=== PATIENT | male | born 2000 | race Caucasian/White ===

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

== ENCOUNTER 2023-08-21 11:01 | Emergency (ER) | payer SELFPAY ==
[2023-08-21 11:45] VITALS: RESP 18
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
[2023-08-21] MEDS: KETOROLAC 15 MG/ML 1 ML VIAL IM STA (13:52)
[2023-08-21] MEDS: HYDROmorphone 0.5 MG/0.5 ML SYRINGE IM STA (13:53)
[2023-08-21 14:58] VITALS: BP 138/81; PULSE 72; TEMP 98.7
== END 2023-08-21 14:52 | disposition home or self-care (01) ==
LOC: EC 11:01
DX: S00.83XA Contusion of other part of head, initial encounter (principal); Y04.0XXA Assault by unarmed brawl or fight, initial encounter
CPT/HCPCS: 72125; 70486; 70450; 99284; 96372 ×2; J1885; J1170

== ENCOUNTER 2024-06-14 21:05 | Emergency (ER) | payer SELFPAY ==
--- NOTE | 2024-06-14 21:37 | ED ---
SOB HPI - General Chief Complaint: Shortness of Breath Stated Complaint: shortness of breath Time Seen by Provider: 06/14/24 21:21 Source: patient Mode of arrival: ambulatory Limitations: no limitations - History of Present Illness Initial Comments: Patient is a 23-year-old man here to have evaluation for exacerbation of asthma. He states that symptoms started flaring up approximately 2-1/2 hours ago. States that he does not have any of his medications. He has not been seeing a physician since Dr. Jade's clinic closed. Is having wheezing, dyspnea, cough with occasional yellow sputum. Has not noted fever, chest pain, change in urination or bowel movements. No leg pain or swelling. MD Complaint: shortness of breath, cough, "asthma attack" Onset/Timin -: hour(s) Severity scale (1-10): 0 Consistency: constant Improves With: nothing Worsens With: nothing Associated Symptoms: cough, sputum production Treatments Prior to Arrival: none - Related Data Home Oxygen Therapy: No Home Medications Medication Instructions Recorded Confirmed Albuterol Inhaler [Ventolin Hfa 2 puff INHALATION DIRECTED PRN 05/17/14 07/18/14 Inhaler] Previous Rx's Medication Instructions Recorded Albuterol Inhaler [Ventolin Hfa 2 puff INHALATION Q4HR PRN #8 gm 06/14/24 Inhaler] Allergies Allergy/AdvReac Type Severity Reaction Status Date / Time No Known Allergies Allergy Verified 08/21/23 11:10 Review of Systems ROS Statement: Those systems with pertinent positive or pertinent negative responses have been documented in the HPI. ROS Other: All systems not noted in ROS Statement are negative. Constitutional: Reports: fever, chills Respiratory: Reports: cough, dyspnea, wheezes. Denies: hemoptysis Cardiovascular: Denies: chest pain, palpitations, orthopnea, edema, syncope Gastrointestinal: Denies: abdominal pain, nausea, vomiting, diarrhea Genitourinary: Denies: dysuria, hematuria Musculoskeletal: Denies: back pain Skin: Denies: rash Neurological: Denies: headache, weakness Past Medical History Past Medical History: Asthma History of Any Multi-Drug Resistant Organisms: MRSA Date of last positivie culture/infection: may 2013 MDRO Source:: r arm Past Surgical History: No Surgical Hx Reported Past Psychological History: No Psychological Hx Reported Smoking Status: Current every day smoker Past Alcohol Use History: Occasional Past Drug Use History: None Reported General Exam Limitations: no limitations General appearance: alert, in no apparent distress Head exam: Present: atraumatic, normocephalic Eye exam: Present: normal appearance. Absent: scleral icterus, conjunctival injection Neck exam: Present: normal inspection Respiratory exam: Present: wheezes. Absent: rales, rhonchi, stridor, accessory muscle use, decreased breath sounds, prolonged expiratory Cardiovascular Exam: Present: regular rate, normal rhythm, normal heart sounds. Absent: systolic murmur, diastolic murmur, rubs, gallop GI/Abdominal exam: Present: soft. Absent: distended, tenderness, guarding, rebound, rigid, mass Extremities exam: Present: normal inspection, normal capillary refill. Absent: pedal edema, calf tenderness Neurological exam: Present: alert Skin exam: Present: warm, dry, intact, normal color. Absent: rash Course Vital Signs 06/14/24 06/14/24 06/14/24 21:09 21:28 21:32 Temperature 99.7 F H Pulse Rate 71 80 Respiratory 26 H 24 30 H Rate Blood Pressure 132/61 O2 Sat by Pulse 83 L 100 Oximetry 06/14/24 06/14/24 06/14/24 21:47 21:53 22:16 Temperature Pulse Rate 75 89 Respiratory Rate Blood Pressure O2 Sat by Pulse 99 Oximetry 06/14/24 06/14/24 22:34 23:26 Temperature 98.2 F Pulse Rate 88 88 Respiratory 20 18 Rate Blood Pressure 128/72 O2 Sat by Pulse 100 98 Oximetry Medical Decision Making - Medical Decision Making The patient had chest x-ray that I interpreted as negative for acute infiltrate, pneumothorax, congestive heart failure. Was pt. sent in by a medical professional or institution (, PA, TECHNICAL DEVELOPER, urgent care, hospital, or [facility]...) When possible be specific @ -[No] Did you speak to anyone other than the patient for history (EMS, parent, family, police, friend...)? What history was obtained from this source @ -[No] Did you review nursing and triage notes (agree or disagree)? Why? @ -[I reviewed and agree with nursing and triage notes] Were old charts reviewed (outside hosp., previous admission, EMS record, old EKG, old radiological studies, urgent care reports/EKG's, [facility] records)? Report findings @ -[No old charts were reviewed] Differential Diagnosis (chest pain, altered mental status, abdominal pain women, abdominal pain men, vaginal bleeding, weakness, fever, dyspnea, syncope, headache, dizziness, GI bleed, back pain, seizure, CVA, palpatations, mental health, musculoskeletal)? @ -[Differential Dyspnea: Coronary syndrome, arrhythmia, tamponade, asthma, COPD, pulmonary embolism, pneumonia, pneumothorax, pulmonary effusion, anaphylaxis, diabetic ketoacidosis, flailed chest, pulmonary contusion, diaphragmatic rupture, anemia, ne uromuscular, this is not meant to be an all-inclusive list. EKG interpreted by me (3pts min.). @ -[As above] X-rays interpreted by me (1pt min.). @ -[I interpreted as above CT interpreted by me (1pt min.). @ -[None done] U/S interpreted by me (1pt. min.). @ -[None done] What testing was considered but not performed or refused? (CT, X-rays, U/S, labs)? Why? @ -[None] What meds were considered but not given or refused? Why? @ -[None] Did you discuss the management of the patient with other professionals (professionals i.e. , PA, TECHNICAL DEVELOPER, lab, RT, psych nurse, social service coordinator, household assistant, teacher, senior grants officer, vocational case manager)? Give summary @ -[No] Was smoking cessation discussed for >3mins.? @ -[No] Was critical care preformed (if so, how long)? @ -[No] Were there social determinants of health that impacted care today? How? (Homelessness, low income, unemployed, alcoholism, drug addiction, transportation, low edu. Level, literacy, decrease access to med. care, assisted, rehab)? @ -[No] Was there de-escalation of care discussed even if they declined (Discuss DNR or withdrawal of care, Hospice)? DNR status @ -[No] What co-morbidities impacted this encounter? (DM, HTN, Smoking, COPD, CAD, Cancer, CVA, ARF, Chemo, Hep., AIDS, mental health diagnosis, sleep apnea, morbid obesity)? @ -History of asthma Was patient admitted / discharged? Hospital course, mention meds given and route, prescriptions, significant lab abnormalities, going to OR and other pertinent info. @ -[Patient is a 23-year-old male with history of asthma who is currently out of his usual medications. He presents with history and physical consistent with asthma. He did have some additional symptoms concerning for possible pneumonia but chest x-ray is negative. The patient did have improvement with inhaled medications. He will be stable to follow-up as outpatient. Discussed return parameters. Undiagnosed new problem with uncertain prognosis? @ -[No] Drug Therapy requiring intensive monitoring for toxicity (Heparin, Nitro, Insulin, Cardizem)? @ -[No] Were any procedures done? @ -[No] Diagnosis/symptom? @ -Acute exacerbation of asthma Acute, or Chronic, or Acute on Chronic? @ -[Acute Uncomplicated (without systemic symptoms) or Complicated (systemic symptoms)? @ -[Uncomplicated Side effects of treatment? @ -[No] Exacerbation, Progression, or Severe Exacerbation? @ -[Acute exacerbation of asthma Poses a threat to life or bodily function? How? (Chest pain, [place], [place], pneumonia, PE, COPD, DKA, ARF, appy, cholecystitis, CVA, Diverticulitis, Homicidal, Suicidal, threat to staff... and all critical care pts) @ -[No] All treatments are based on ideal body weight as in ED triage - Lab Data Lab Results 06/14/24 Range/Units 21:38 Influenza Type A (PCR) Not Detected (Not Detectd) Influenza Type B (PCR) Not Detected (Not Detectd) RSV (PCR) Not Detected (Not Detectd) SARS-CoV-2 (PCR) Not Detected (Not Detectd) Disposition Clinical Impression: Asthma Disposition: HOME SELF-CARE Condition: Good Instructions (If sedation given, give patient instructions): Asthma (ED) Prescriptions: Albuterol Inhaler [Ventolin Hfa Inhaler] 2 puff INHALATION Q4HR PRN #8 gm PRN Reason: Wheezing Is patient prescribed a controlled substance at d/c from ED?: No Referrals: None,Stated [Primary Care Provider] - 1-2 days
[2024-06-14] MEDS: ALBUTEROL NEBULIZED 2.5 MG/3 ML INHALATION STA (21:51)
[2024-06-14] MEDS: IPRATROPIUM-ALBUTEROL 3 ML NEB INHALATION STA (21:51)
--- NOTE | 2024-06-14 21:54 | XR ---
EXAMINATION TYPE: XR chest 2V DATE OF EXAM: 06/14/2024 9:50 PM COMPARISON: 01/19/2006 CLINICAL INDICATION: Male, 23 years old with history of wheezing, TECHNIQUE: Frontal and lateral views of the chest are obtained. FINDINGS: There is no focal air space opacity, pleural effusion, or pneumothorax seen. The cardiac silhouette size is within normal limits. The osseous structures are intact. IMPRESSION: No acute cardiopulmonary process. [facility], , 06/14/2024 9:51 PM
[2024-06-14 22:26] LABS: Influenza A Not Detected (Not Detectd); Influenza B Not Detected (Not Detectd); RSV Not Detected (Not Detectd)
[2024-06-14 22:34] VITALS: PULSE 88
[2024-06-14 23:29] VITALS: BP 128/72; RESP 18; TEMP 98.2
== END 2024-06-14 23:38 | disposition home or self-care (01) ==
LOC: EC 21:05
DX: J45.901 Unspecified asthma with (acute) exacerbation (principal); F17.200 Nicotine dependence, unspecified, uncomplicated
CPT/HCPCS: 71046; 87636; 94640; 99285